=== PATIENT | male | born 2000 | race Caucasian/White ===

== ENCOUNTER 2022-03-06 08:07 | Emergency (ER) | payer SELFPAY ==
[2022-03-06] MEDS ORDERED: Sodium Chloride 0.9% 1,000 ML ONE (08:41)
[2022-03-06] MEDS ORDERED: Ondansetron PF 4 MG/2 ML Vial ONE (08:41)
[2022-03-06] MEDS ORDERED: Loperamide HCl 2 MG CAP ONE (08:41)
== END 2022-03-06 09:59 | disposition home or self-care (01) ==
LOC: MADERS 08:07
DX: R11.2 Nausea with vomiting, unspecified (principal); R19.7 Diarrhea, unspecified; Z87.891 Personal history of nicotine dependence
CPT/HCPCS: 96361; 96374; J2405; J7050